=== PATIENT | female | born 1955 | race Caucasian/White ===

== ENCOUNTER → 2018-03-15 | Outpatient (CLI) | payer BC ==
--- NOTE | 2018-03-19 10:43 | MM ---
Reason for exam: screening (asymptomatic). Last mammogram was performed 1 year and 8 months ago. History: Patient is postmenopausal. Benign excisional biopsy of the left breast, 1988. Benign excisional biopsy of the right breast, 1986. Took hormonal contraceptives for 15 years beginning at age 29. Taking estrogen for 3 years. Taking progesterone for 3 years. Physical Findings: A clinical breast exam by your physician is recommended on an annual basis and results should be correlated with mammographic findings. MG 3D Screening Mammo W/Cad Bilateral CC and MLO view(s) were taken. Prior study comparison: June 30, 2016, bilateral MG screening mammo w CAD. November 21, 2014, bilateral MG screening mammo w CAD. There are scattered fibroglandular densities. There are benign appearing round calcifications bilaterally. There is chronic nodularity in the left breast. There is no discrete abnormality. ASSESSMENT: Benign, BI-RAD 2 RECOMMENDATION: Routine screening mammogram of both breasts in 1 year.
== END | disposition home or self-care (01) ==
LOC: RADMAMWWP 07:07
PROVIDERS: ATTEND Obstetrics & Gynecology
DX: Z12.31 Encounter for screening mammogram for malignant neoplasm of breast (principal)
CPT/HCPCS: 77063; 77067

== ENCOUNTER → 2020-02-03 | Outpatient (CLI) | payer BC ==
--- NOTE | 2020-02-03 13:00 | BD ---
EXAMINATION TYPE: Axial Bone Density DATE OF EXAM: 02/03/2020 COMPARISON: NONE CLINICAL HISTORY: Height: 5 FT 6 IN Weight: 229 FRAX RISK QUESTIONS: Alcohol (3 or more units per day): NO Family History (Parent hip fracture): NO Glucocorticoids (More than 3mos): NO (Ex: prednisone, prednisolone, methylprednisolone, dexamethasone, and hydrocortisone). History of Fracture in Adulthood: NO Secondary Osteoporosis: 1. Type 1 Diabetes: NO 2. Hyperthyroidism: NO 3. Menopause before 45: NO 4. Malnutrition: NO 5. Chronic liver disease: NO Rheumatoid Arthritis: NO Current Tobacco Use: NO RISK FACTORS HISTORY OF: Active: YES Postmenopausal woman: APPROX 9- 10 YEARS AGO Take estrogen and/or progesterone medications: TOOK MELISSA PRO FOR APPRX 5 YEARS MEDICATIONS: Additional Medications: ZYRTEC Additional History: EXAM MEASUREMENTS: Bone mineral densitometry was performed using the [employer] System. Bone mineral density as measured about the Lumbar spine is: ----- L1-L4(G/cm2): 1.493 T Score Values are as follows: ----- L2: 3.0 ----- L3: 3.3 ----- L4: 2.8 ----- L1-L4: 2.6 BASELINE Bone mineral density about the R hip (g/cm2): 0.919 Bone mineral density about the L hip (g/cm2): 0.923 T Score values are as follows: -----R Neck: -0.9 -----L Neck: -0.8 -----R Total: -0.3 -----L Total: 0.1 BASELINE IMPRESSION: No evidence for osteoporosis or osteopenia. NOTE: T-SCORE=SD OF THE YOUNG ADULT MEAN.
--- NOTE | 2020-02-05 10:30 | MM ---
Reason for exam: screening (asymptomatic). Last mammogram was performed 1 year and 11 months ago. History: Patient is postmenopausal. Benign excisional biopsy of the left breast, 1988. Benign excisional biopsy of the right breast, 1986. Took hormonal contraceptives for 15 years beginning at age 29. Took estrogen for 3 years. Took progesterone for 3 years. Physical Findings: A clinical breast exam by your physician is recommended on an annual basis and results should be correlated with mammographic findings. MG 3D Screening Mammo W/Cad Bilateral CC and MLO view(s) were taken. Prior study comparison: March 15, 2018, bilateral MG 3d screening mammo w/cad. June 30, 2016, bilateral MG screening mammo w CAD. There is chronic nodularity bilaterally. No significant changes when compared with prior studies. ASSESSMENT: Benign, BI-RAD 2 RECOMMENDATION: Routine screening mammogram of both breasts in 1 year.
== END | disposition home or self-care (01) ==
LOC: RADMAMWWP 07:19
PROVIDERS: ATTEND Family Medicine
DX: Z12.31 Encounter for screening mammogram for malignant neoplasm of breast (principal); Z78.0 Asymptomatic menopausal state
CPT/HCPCS: 77063; 77067; 77080

== ENCOUNTER → 2021-08-06 | Outpatient (CLI) | payer BC ==
--- NOTE | 2021-08-09 10:52 | MM ---
Reason for exam: screening (asymptomatic). Last mammogram was performed 1 year and 6 months ago. History: Patient is postmenopausal. Benign excisional biopsy of the left breast, 1988. Benign excisional biopsy of the right breast, 1986. Took hormonal contraceptives for 15 years beginning at age 29. Took estrogen for 3 years. Took progesterone for 3 years. Physical Findings: A clinical breast exam by your physician is recommended on an annual basis and results should be correlated with mammographic findings. MG 3D Screening Mammo W/Cad Bilateral CC and MLO view(s) were taken. Prior study comparison: February 03, 2020, bilateral MG 3d screening mammo w/cad. March 15, 2018, bilateral MG 3d screening mammo w/cad. The breast tissue is heterogeneously dense. This may lower the sensitivity of mammography. Finding: There are round, grouped/clustered calcifications in the lower outer quadrant of the left breast on CC view. There is a chronic nodularity in the left breast. New finding since February 03, 2020 and March 15, 2018. ASSESSMENT: Incomplete: need additional imaging evaluation, BI-RAD 0 RECOMMENDATION: Special view mammogram of the left breast. [facility] will attempt to contact patient to return for supplemental views.
== END | disposition home or self-care (01) ==
LOC: RADMAMWWP 07:13
PROVIDERS: ATTEND Family Medicine
DX: Z12.31 Encounter for screening mammogram for malignant neoplasm of breast (principal); Z78.0 Asymptomatic menopausal state
CPT/HCPCS: 77063; 77067

== ENCOUNTER → 2023-01-13 | Outpatient (CLI) | payer MEDICARE ==
--- NOTE | 2023-01-16 06:19 | MM ---
Reason for Exam: Screening (asymptomatic). Last mammogram was performed 1 year(s) and 5 month(s) ago. Patient History: Menarche at age 18. First Full-Term at age 31. Postmenopausal. Patient used Estrogen for 3 years. Patient used Progesterone for 3 years. Hormonal Contraceptives for 15 years from age 29 until age 44. 1986, Benign Excisional Biopsy on the right side. 1988, Benign Excisional Biopsy on the left side. Risk Values: Christine 5 year model risk: 2.5%. NCI Lifetime model risk: 9.0%. Prior Study Comparison: 02/03/2020 Bilateral Screening Mammogram, [facility]. 08/06/2021 Bilateral Screening Mammogram, [facility]. 08/10/2021 Left Diagnostic Mammogram, [facility]. Tissue Density: There are scattered fibroglandular densities. Findings: Analyzed By CAD. There is no suspicious group of microcalcifications or new suspicious mass in either breast. Stable benign calcifications within both breasts. Chronic nodularity within the left breast. Overall Assessment: Benign, BI-RAD 2 Management: Screening Mammogram of both breasts in 1 year. A clinical breast exam by your physician is recommended on an annual basis and results should be correlated with mammographic findings. Note on Christine scores and lifetime risk: 1. A Christine score greater than 3% is considered moderate risk. If this is the case, consider specialist referral to assess eligibility for a risk reducing agent. If overall lifetime risk for the development of breast cancer is 20% or higher, the patient may qualify for future screening with alternating mammogram and breast MRI. Electronically signed and approved by: Bernabe Cooper D.O.
== END | disposition home or self-care (01) ==
LOC: RADMAMWWP 08:23
PROVIDERS: ATTEND Family Medicine
DX: Z12.31 Encounter for screening mammogram for malignant neoplasm of breast (principal); Z78.0 Asymptomatic menopausal state
CPT/HCPCS: 77063; 77067

== ENCOUNTER → 2024-04-02 | Outpatient (CLI) | payer MEDICARE ==
--- NOTE | 2024-04-03 13:49 | MM ---
Reason for Exam: Screening (asymptomatic). Last mammogram was performed 1 year(s) and 3 month(s) ago. Patient History: Menarche at age 18. First Full-Term at age 31. Postmenopausal. Patient used Estrogen for 3 years. Patient used Progesterone for 3 years. Hormonal Contraceptives for 15 years from age 29 until age 44. 1986, Benign Excisional Biopsy on the right side. 1988, Benign Excisional Biopsy on the left side. Risk Values: Christine 5 year model risk: 2.6%. NCI Lifetime model risk: 8.7%. Prior Study Comparison: 08/06/2021 Bilateral Screening Mammogram, [facility]. 08/10/2021 Left Diagnostic Mammogram, [facility]. 01/13/2023 Bilateral MG 3D screening mammo w/cad, [facility]. Tissue Density: There are scattered areas of fibroglandular density. Findings: Analyzed By CAD. There is no suspicious group of microcalcifications or new suspicious mass in either breast. Overall Assessment: Benign, BI-RAD 2 Management: Screening Mammogram of both breasts in 1 year. . Patient should continue monthly self-breast exams. A clinical breast exam by your physician is recommended on an annual basis. This exam should not preclude additional follow-up of suspicious palpable abnormalities. Note on Christine scores and lifetime risk: 1. A Christine score greater than 3% is considered moderate risk. If this is the case, consider specialist referral to assess eligibility for a risk reducing agent. 2. If overall lifetime risk for the development of breast cancer is 20% or higher, the patient may qualify for future screening with alternating mammogram and breast MRI. Electronically signed and approved by: Richard Contreras M.D. Radiologis
== END | disposition home or self-care (01) ==
LOC: RADMAMWWP 06:57
PROVIDERS: ATTEND Family Medicine
DX: Z12.31 Encounter for screening mammogram for malignant neoplasm of breast
CPT/HCPCS: 77063; 77067

== ENCOUNTER → 2024-04-12 | Outpatient (CLI) | payer MEDICARE ==
--- NOTE | 2024-04-13 01:16 | MR ---
EXAMINATION TYPE: MR knee LT wo con DATE OF EXAM: 04/12/2024 COMPARISON: Outside bilateral knee x-rays April 05, 2024 HISTORY: Left knee pain for 30 days. TECHNIQUE: Multiplanar, multisequence images of the knee is performed without IV contrast. FINDINGS: MEDIAL MENISCUS: Oblique increased signal posterior horn extends to inferior articular surface. LATERAL MENISCUS: Anterior and posterior horns are intact without tear. CRUCIATE LIGAMENTS: The anterior and posterior cruciate ligaments are intact and unremarkable. COLLATERAL LIGAMENTS: The medial collateral ligament and lateral collateral ligament complex are inta ct. Mild fluid signal surrounds the medial collateral ligament. EXTENSOR MECHANISM: Visualized quadriceps and patellar tendons are intact. EFFUSION: No significant suprapatellar joint effusion. POPLITEAL CYST: Small to moderate size popliteal/waggoner cyst. TRICOMPARTMENT SPACES: Moderate to severe narrowing patellofemoral compartment with moderate spurring . Mild to moderate narrowing and spurring medial and lateral tibiofemoral compartments. CARTILAGE: Chondromalacia patella with full-thickness cartilaginous loss along the posterior patellar pole. BONE MARROW SIGNAL: No focal abnormal marrow signal is appreciated. OTHER: No additional significant abnormality is appreciated. IMPRESSION: 1. Tricompartment degenerative changes most prominent patellofemoral compartment as detailed above. 2. Oblique full-thickness tear posterior horn medial meniscus. 3. Mild MCL sprain injury. 4. Small to moderate-size popliteal cyst. [facility], , 04/13/2024 1:14 AM
== END | disposition home or self-care (01) ==
LOC: RADMRIMAIN 11:55
PROVIDERS: ATTEND Orthopaedic Surgery
DX: M25.562 Pain in left knee

== ENCOUNTER → 2024-05-03 | Outpatient (CLI) | payer MEDICARE ==
--- NOTE | 2024-05-03 18:02 | MR ---
EXAMINATION TYPE: MR knee RT wo con DATE OF EXAM: 05/03/2024 COMPARISON: Radiograph 04/05/2024 HISTORY: 69-year-old female M25.561, right knee pain TECHNIQUE: Multiplanar, multisequence imaging of the right knee is performed without IV contrast. FINDINGS: The ACL, PCL, MCL, and LCL complex appear intact. The posterior horn and body of the medial meniscus is diffusely degenerative and torn. Moderate irreg ular cartilage loss throughout the mid and peripheral aspect of the medial compartment with marginal spurring and reactive subchondral marrow signal change. Small areas of full-thickness cartilage loss is suspected along the mid weightbearing aspect. AC degenerative and torn lateral meniscus. Marginal spurring in the lateral compartment with moderate diffuse cartilage thinning. Degenerative change in the patellofemoral compartment with marginal spurring and full-thickness to ne tasha full-thickness cartilage loss particularly along the mid aspect and lateral patellar facet. Mode rate thinning of articular cartilage along the lateral trochlear facet. There is a [id number] knee joint effusion with trace early Acosta's cyst. Extensor mechanism is intact. Nonspecific mild subcutaneous soft tissue swelling anteriorly. Normal popliteal artery anatomy and muscle bulk. No suspicious bone marrow replacement. IMPRESSION: 1. Diffusely degenerative and torn lateral meniscus. Additional diffusely degenerative and torn poste rior horn and body of the medial meniscus. 2. Moderate overall medial compartmental OA. Small areas of full-thickness cartilage loss involving t he mid weightbearing aspect of the joint. 3. Moderate to severe patellofemoral compartmental OA with full-thickness cartilage loss along most o f the mid patella and lateral patellar facet. 4. Kcimo-[id number] knee joint effusion. [facility], , 05/03/2024 5:59 PM
== END | disposition home or self-care (01) ==
LOC: RADMRIMAIN 11:08
PROVIDERS: ATTEND Orthopaedic Surgery
DX: M25.561 Pain in right knee

== ENCOUNTER → 2024-05-07 | Outpatient (CLI) | payer MEDICARE ==
[2024-05-07 10:32] LABS: Potassium 4.9 mmol/L (3.5-5.5)
[2024-05-07 11:23] LABS: Basophils # (A) 0.05 X 10*3/uL (0.00-0.10); Basophils % (A) 0.5 %; Eosinophils # (A) 0.59 X 10*3/uL (0.04-0.35); Eosinophils % (A) 6.2 %; HCT 40.9 % (37.2-46.3); HGB 13.5 g/dL (12.0-15.0); Lymphocytes # (A) 4.16 X 10*3/uL (0.90-5.00); Lymphocytes % (A) 43.7 %; MCH 31.3 pg (27.0-32.0); MCV 94.9 FL (80.0-97.0); Mean Platelet Volume 10.4 FL (9.5-12.2); Monocytes # (A) 0.66 X 10*3/uL (0.20-1.00); Monocytes % (A) 6.9 %; NRBC Per 100 WBC 0 X 10*3/uL (0.00-0.01); Neutrophils # (A) 4.03 X 10*3/uL (1.80-7.70); Neutrophils % (A) 42.4 %; Platelet Count 341 X 10*3/uL (140-440); RBC 4.31 X 10*6/uL (4.10-5.20); RDW 12.6 % (11.5-14.5); WBC 9.52 X 10*3/uL (4.50-10.00)
== END | disposition home or self-care (01) ==
LOC: LABPAT 06:59
PROVIDERS: ATTEND Orthopaedic Surgery
DX: Z01.818 Encounter for other preprocedural examination (principal); M23.92 Unspecified internal derangement of left knee; R94.31 Abnormal electrocardiogram [ECG] [EKG]
CPT/HCPCS: 36415; 80051; 85025; 93005

== ENCOUNTER 2024-05-16 09:49 | Day surgery (SDC) | payer MEDICARE ==
[2024-05-09 15:35] VITALS: BMI 37.1
--- NOTE | 2024-05-16 00:04 | HP ---
HISTORY AND PHYSICAL DATE OF SURGERY: 05/16/2024. HISTORY OF PRESENT ILLNESS: Lashawn Starkey is a 69-year-old patient seen with progressive left knee pain. We discussed options regarding treatment. She elected to proceed with left knee arthroscopy. Consent was obtained. PAST MEDICAL HISTORY: Hypertension, hyperlipidemia. PAST SURGICAL HISTORY: Noncontributory. DAILY MEDICATIONS: 1. Hydrochlorothiazide. 2. Atorvastatin. ALLERGIES: None. SOCIAL HISTORY: She denies tobacco use. PHYSICAL EVALUATION OF THE LEFT KNEE: Range of motion is +2 to 130 degrees. Mild effusion. Tenderness, medial joint line. Positive medial Radha's. Ligaments stable. Hip rotation without pain. Distal neurovascular exam is intact. IMAGING STUDIES: Left knee radiographs revealed moderate medial compartment and patellofemoral compartment osteoarthritis. Left knee MRI revealed medial meniscal tear, popliteal cyst. IMPRESSION: 1. Internal derangement of left knee with medial meniscal tear. 2. Hypertension. 3. Hyperlipidemia. PLAN: Left knee arthroscopy with partial medial meniscectomy and debridement. MMODL / IJN: [id number] /
[2024-05-16] MEDS: IV FLUID CONTINUATION 1,000 ML IV ONE ×3 (10:25→12:05)
[2024-05-16] MEDS: BUPIVACAINE (PF) 0.25% 30 ML VIAL MISCELLANE ONE ×2 (10:29→11:13)
[2024-05-16] MEDS ORDERED: LIDOCAINE 1% (10MG/ML) FOR IV START INTRADERMA PRN (10:32)
[2024-05-16] MEDS ORDERED: fentaNYL (PF) 50 MCG/ML 2 ML AMP IV PRN (10:32)
[2024-05-16] MEDS ORDERED: droPERidol 5 MG/2 ML VIAL IVP ONE (10:32)
[2024-05-16] MEDS: DEXAMETHASONE SOD PHOSPHATE 4 MG/ML 1 ML VIAL IV ONE (10:35)
[2024-05-16] MEDS: ONDANSETRON 4 MG/2 ML VIAL IVP ONE (10:35)
[2024-05-16] MEDS: LACTATED RINGERS 1,000 ML IV SCH (10:37)
[2024-05-16] MEDS ORDERED: fentaNYL (PF) 50 MCG/ML 2 ML AMP ONE (10:46)
[2024-05-16] MEDS ORDERED: HYDROmorphone (PF) 1 MG/ML ONE (10:46)
[2024-05-16] MEDS ORDERED: MIDAZOLAM 2 MG/2 ML VIAL ONE (10:46)
[2024-05-16] MEDS ORDERED: PROPOFOL 10 MG/ML 20 ML VIAL IV ONE (10:46)
[2024-05-16] MEDS ORDERED: LIDOCAINE 1% INJ 10MG/ML (20 ML MDV) ONE (10:46)
[2024-05-16] MEDS ORDERED: KETOROLAC 15 MG/ML 1 ML VIAL ONE (10:46)
--- NOTE | 2024-05-16 11:34 | P.OP ---
Date of Procedure: 05/16/24 Preoperative Diagnosis: Internal derangement left knee Postoperative Diagnosis: 1. Tear medial lateral and meniscus left knee 2. Grade IV chondromalacia femoral sulcus left knee 3. Reactive synovitis medial, lateral and suprapatellar compartments left knee 4. 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 Arthroscopic partial medial and lateral meniscectomy left knee 2. Arthroscopic microfracture femoral sulcus left knee 3. Arthroscopic partial synovectomy medial, lateral and suprapatellar compartments left knee 4. Arthroscopic chondroplasty lateral tibial plateau left knee Anesthesia: VÍCTORA, local Surgeon: Vishal Archuleta Estimated Blood Loss (ml): 7 Pathology: none sent Condition: stable Disposition: PACU Indications for Procedure: 69-year-old patient seen with progressive left knee pain. After having treatment options discussed, she elected to proceed with arthroscopy. Operative Findings: See description of procedure Description of Procedure: Patient was taken to the operative suite. Patient underwent a general anesthetic by the department of anesthesia. Patient was given preoperative antibiotics. The left lower extremity was placed in a well-padded arthroscopic leg cole. The left leg was prepped and draped in the normal sterile orthopedic fashion. A lateral parapatellar and suprapatellar incision was made. Trochars were inserted. Arthroscopy was initiated. Suprapatellar pouch revealed diffuse thick reactive synovitis. The patellofemoral joint appeared to articulate congruently. There was grade IV chondromalacia patella with a central area of exposed bone and grade IV chondromalacia of the femoral sulcus with a 2 cm diameter area of exposed bone. The scope was guided into the medial gutter. No loose bodies or plica were identified the scope was then guided into the medial compartment. A medial parapatellar incision was made. Trocar inserted followed by probe. There was a complex tear posterior horn medial meniscus extending into the root. There were grade I/II chondromalacia changes medial compartment with no tears. There was thick reactive synovitis anteriorly. I performed a partial medial meniscectomy getting down to stable meniscal tissue. I performed a partial synovectomy decompressing the reactive synovitis. The residual meniscus was stable. There was good decompression of the synovitis. Scope and probe were then guided into the intercondylar notch. Cruciates were identified, probed and found to be stable. The scope and probe were then guided into lateral compartment. There was a radial tear mid body and posterior horns lateral meniscus. There was an area of grade II/III chondromalacia lateral tibial plateau with some osteochondral flap tears. There was some thick reactive synovitis anteriorly. I performed a partial lateral meniscectomy getting down to stable meniscal tissue. I performed a partial synovectomy decompressing the reactive synovitis. The residual meniscus was stable. There was good decompression of the synovitis. The scope was in guided back into the suprapatellar compartment. I introduced a motorized shaver into the suprapatellar compartment. I debrided some piecemeal fragments of meniscus I encountered. I performed a partial synovectomy. I now introduced a microfracture awl and I performed a microfracture to the area of exposed bone femoral sulcus and 2 separate areas penetrating the bone with resultant bleeding at the microfracture sites. I now took one more look around the entire knee, no residual debris. Instruments were now removed from the joint. The joint was infiltrated with .25% Marcaine. Steri-Strips were applied to the portal sites. Sterile dressings were applied. The patient was placed into a EVI hose. No tourniquet was utilized. The patient was awakened, transferred to a bed and taken to recovery stable satisfactory condition.
[2024-05-16 11:36] VITALS: TEMP 97
[2024-05-16 13:12] VITALS: RESP 16
[2024-05-16 14:19] VITALS: BP 143/77; PULSE 75
== END 2024-05-16 14:11 | disposition home or self-care (01) ==
LOC: OR 09:49
PROVIDERS: ATTEND Orthopaedic Surgery

== ENCOUNTER 2024-06-26 08:43 | Day surgery (SDC) | payer MEDICARE ==
[2024-06-19 15:52] VITALS: BMI 37.5
--- NOTE | 2024-06-26 00:31 | HP ---
HISTORY AND PHYSICAL DATE OF SURGERY: 06/26/2024. HISTORY OF PRESENT ILLNESS: Lashawn Starkey is a 69-year-old patient, seen with progressive right knee pain. We discussed options regarding treatment. She elected to proceed with right knee arthroscopy. Consent was obtained. PAST MEDICAL HISTORY: Hypertension, hyperlipidemia. PAST SURGICAL HISTORY: Left knee arthroscopy. DAILY MEDICATIONS: 1. Atorvastatin. 2. Hydrochlorothiazide. 3. Aspirin. MEDICATIONS ALLERGIES: None reported. SOCIAL HISTORY: She denies tobacco use. PHYSICAL EVALUATION OF THE LEFT KNEE: Her range of motion is 0 to 120 degrees. There is a mild effusion present. She is tender along the medial and lateral joint lines. There is a positive medial Radha's and a positive lateral Radha's. Ligaments are stable. Hip rotation is without pain. Her distal neurovascular exam is intact. IMAGING: Right knee radiographs revealed moderate medial patellofemoral compartment osteoarthritis. MRI of right knee revealed medial and lateral meniscal tears along with osteoarthritic changes and intra-articular effusion. IMPRESSION: 1. Internal derangement of right knee with medial and lateral meniscal tears. 2. Hypertension. 3. Hyperlipidemia. PLAN: Right knee arthroscopy with partial medial/lateral meniscectomy and debridement. MMODL / IJN: [id number] /
[~2024-06-26 08:43] MED LIST: HYDROmorphone 0.5 MG/0.5 ML SYRINGE IVP PRN; LACTATED RINGERS 1,000 ML IV SCH; MIDAZOLAM 2 MG/2 ML VIAL IV PRN; fentaNYL (PF) 50 MCG/ML 2 ML AMP IVP PRN
[2024-06-26 09:02] VITALS: RESP 16; TEMP 98.2
[2024-06-26] MEDS: LIDOCAINE 1% (10MG/ML) FOR IV START INTRADERMA PRN (09:09)
[2024-06-26] MEDS: IV FLUID CONTINUATION 1,000 ML IV ONE ×2 (09:09→10:08)
[2024-06-26] MEDS: FAMOTIDINE 20 MG/2 ML VIAL IV STA (09:17)
[2024-06-26] MEDS: SCOPOLAMINE 1 MG/72 HR PATCH TRANSDERM STA (09:17)
[2024-06-26] MEDS: ONDANSETRON 4 MG/2 ML VIAL IVP ONE (09:18)
[2024-06-26] MEDS: DEXAMETHASONE SOD PHOSPHATE 4 MG/ML 1 ML VIAL IV ONE (09:18)
[2024-06-26] MEDS ORDERED: LIDOCAINE 1% INJ 10MG/ML (20 ML MDV) ONE (10:05)
[2024-06-26] MEDS ORDERED: fentaNYL (PF) 50 MCG/ML 2 ML AMP ONE (10:05)
[2024-06-26] MEDS ORDERED: MIDAZOLAM 2 MG/2 ML VIAL ONE (10:05)
[2024-06-26] MEDS ORDERED: PROPOFOL 10 MG/ML 20 ML VIAL IV ONE (10:05)
[2024-06-26] MEDS ORDERED: KETOROLAC 15 MG/ML 1 ML VIAL ONE (10:05)
[2024-06-26] MEDS: BUPIVACAINE (PF) 0.25% 30 ML VIAL INTRAARTIC ONE (10:18)
--- NOTE | 2024-06-26 11:01 | P.OP ---
Date of Procedure: 06/26/24 Preoperative Diagnosis: Internal derangement right knee Postoperative Diagnosis: 1. Tear medial and lateral meniscus right knee 2. Grade IV chondromalacia femoral sulcus right knee 3. Reactive synovitis medial, lateral and suprapatellar compartments right knee 4. Grade II/III chondromalacia medial femoral condyle right knee Procedure(s) Performed: 1. Arthroscopic partial medial and lateral meniscectomy right knee 2. Arthroscopic microfracture femoral sulcus right knee 3. Arthroscopic partial synovectomy medial, lateral and suprapatellar compartments right knee 4. Arthroscopic chondroplasty medial femoral condyle right knee Anesthesia: VÍCTORA, local Surgeon: Vishal Archuleta Estimated Blood Loss (ml): 6 Pathology: none sent Condition: stable Disposition: PACU Indications for Procedure: 69-year-old patient seen with progressive right knee pain. After having nery tment options discussed, she elected to proceed with arthroscopy. Operative Findings: See description of procedure Description of Procedure: Patient was taken to the operative suite. Patient underwent a general anesthetic by the department of anesthesia. Patient was given preoperative antibiotics. The right lower extremity was placed in a well-padded arthroscopic leg cole. The right leg was prepped and draped in the normal sterile orthopedic fashion. A lateral parapatellar and suprapatellar incision was made. Trochars were inserted. Arthroscopy was initiated. Suprapatellar pouch revealed diffuse thick reactive synovitis. The patellofemoral joint appeared to articulate congruently. There was grade IV chondromalacia patella with a area of exposed bone measuring 2.5 x 1 cm central articulating surface. There were no osteochondral tears present. There was an area of grade III/IV chondromalacia femoral sulcus with osteochondral flap tears present the scope was guided into the medial gutter. No loose bodies or plica were identified. The scope was then guided into the medial compartment. A medial parapatellar incision was made. Trocar inserted followed by probe. There was a complex tear involving the posterior horn medial meniscus extending to the mid body area. There were grade II/III chondromalacia changes medial femoral condyle with osteochondral flap tears. There was thick reactive synovitis anteriorly. I performed a partial medial meniscectomy getting down to stable meniscal tissue. I performed a chondroplasty of the medial femoral condyle getting down to stable osteochondral tissue. I performed a partial synovectomy decompressing the thick reactive synovitis. The residual meniscus was probed and was found to be stable. The residual osteochondral surface was stable. There was good decompression of the synovitis. Scope and probe were then guided into the intercondylar notch. Cruciates were identified, probed and found to be stable. The scope and probe were then guided into lateral compartment. There was a complex tear involving the anterior horn mid body and posterior horns of the l ateral meniscus. There were grade 2 chondral changes throughout the lateral compartment with no tears. There was thick reactive synovitis anteriorly. I performed a partial lateral meniscectomy getting down to stable meniscal tissue. I performed a partial synovectomy decompressing the reactive synovitis. The residual meniscus was probed and was found to be stable. The residual osteochondral surface was stable. There was good decompression of the synovitis. The scope was in guided back into the suprapatellar compartment. I reduced a motorized shaver into the supra compartment. I debrided some piecemeal fragments of meniscus I encountered. I performed a chondroplasty of the femoral sulcus getting down to stable osteochondral tissue. I performed a partial synovectomy decompressing the reactive synovitis. There was an area of exposed bone involving the femoral sulcus on the medial side measuring just about a centimeter. I had used a microfracture awl and I performed a microfra cture to that area of exposed bone penetrating the bone with resultant bleeding at the microfracture site. The residual osteochondral surface was probed and was found to be stable. I took 1 more look around the entire knee no residual debris. Instruments were now removed from the joint. The joint was infiltrated with .25% Marcaine. Steri-Strips were applied to the portal sites. Sterile dressings were applied. The patient was placed into a EVI hose. No tourniquet was utilized. The patient was awakened, transferred to a bed and taken to recovery stable satisfactory condition.
[2024-06-26 12:10] VITALS: BP 145/81; PULSE 72
== END 2024-06-26 12:51 | disposition home or self-care (01) ==
LOC: OR 08:43
PROVIDERS: ATTEND Orthopaedic Surgery
DX: S83.281A Other tear of lateral meniscus, current injury, right knee, initial encounter (principal); S83.241A Other tear of medial meniscus, current injury, right knee, initial encounter; I10 Essential (primary) hypertension; E78.5 Hyperlipidemia, unspecified; M22.41 Chondromalacia patellae, right knee; M65.161 Other infective (teno)synovitis, right knee; Z79.82 Long term (current) use of aspirin; Z79.899 Other long term (current) drug therapy; Z88.5 Allergy status to narcotic agent; Z88.8 Allergy status to other drugs, medicaments and biological substances; Z90.49 Acquired absence of other specified parts of digestive tract; Z98.890 Other specified postprocedural states; X58.XXXA Exposure to other specified factors, initial encounter
CPT/HCPCS: 29879; 29880; J2250; J1100; J0690; J2405; J2003; J3010; J3490; J1885; J2704; J0665